=== PATIENT | female | born 2000 | race Two or more races ===

== ENCOUNTER 2019-11-24 13:02 | Emergency (ER) | payer MEDICAID ==
[2019-11-24] MEDS ORDERED: diphenhydrAMINE 50 mg/ml inj IV STA (13:18)
[2019-11-24] MEDS ORDERED: diphenhydrAMINE 50 mg/ml inj ONE (13:19)
--- NOTE | 2019-11-24 13:30 | NUR ---
Pt medicated with benadryl as ordered. Pt no longer having neck spasms. Pt given warm blanket.
[2019-11-24 14:13] VITALS: BP 106/59
[2019-11-24] MEDS ORDERED: DIPH25CA83 PO (19:47)
== END 2019-11-24 14:14 | disposition home or self-care (01) ==
LOC: ER 13:03
DX: O21.9 Vomiting of pregnancy, unspecified (principal); M54.2 Cervicalgia; Z88.8 Allergy status to other drugs, medicaments and biological substances; Z3A.14 14 weeks gestation of pregnancy
CPT/HCPCS: 96372; 99283; J1200

== ENCOUNTER 2019-12-07 18:00 | Emergency (ER) | payer MEDICAID ==
[~2019-12-07] VITALS: Ht 149.9 cm; Wt 59.1 kg
[~2019-12-07 18:00] MED LIST: DIPH25CA83 PO
[2019-12-07 18:01] VITALS: BP 137/89
== END 2019-12-07 19:22 | disposition home or self-care (01) ==
LOC: ER 18:00
DX: M25.511 Pain in right shoulder (principal); M54.6 Pain in thoracic spine; F12.90 Cannabis use, unspecified, uncomplicated; Z88.8 Allergy status to other drugs, medicaments and biological substances; Z79.899 Other long term (current) drug therapy
CPT/HCPCS: 99282

== ENCOUNTER 2023-06-22 16:12 | Outpatient (CLI) | payer MEDICAID | END 2023-06-22 23:59 | disposition home or self-care (01) | LOC: RAD 16:12 | PROVIDERS: ATTEND Obstetrics & Gynecology | DX: O09.91 Supervision of high risk pregnancy, unspecified, first trimester (principal); Z3A.14 14 weeks gestation of pregnancy | CPT/HCPCS: 76801 ==

== ENCOUNTER 2023-07-07 18:55 | Emergency (ER) | payer MEDICAID ==
[~2023-07-07] VITALS: Ht 149.9 cm; Wt 85.5 kg
[2023-07-07 19:10] VITALS: BP 117/84; PULSE 82; RESP 16; TEMP 98.2; O2SAT 98
[2023-07-07] MEDS ORDERED: AMOX-117 PO (19:25)
== END 2023-07-07 19:41 | disposition home or self-care (01) ==
LOC: ER 18:55
DX: O26.892 Other specified pregnancy related conditions, second trimester (principal); K04.7 Periapical abscess without sinus; Z3A.16 16 weeks gestation of pregnancy
CPT/HCPCS: 99283

== ENCOUNTER → 2023-08-25 | Outpatient (CLI) | payer MEDICAID | END | disposition home or self-care (01) | LOC: RAD 12:50 | PROVIDERS: ATTEND Obstetrics & Gynecology | DX: O09.92 Supervision of high risk pregnancy, unspecified, second trimester (principal); Z3A.23 23 weeks gestation of pregnancy | CPT/HCPCS: 76811 ==

== ENCOUNTER 2023-11-24 14:43 | Outpatient (CLI) | payer MEDICAID | END 2023-11-24 23:59 | disposition home or self-care (01) | LOC: RAD 14:43 | PROVIDERS: ATTEND Obstetrics & Gynecology | DX: O09.93 Supervision of high risk pregnancy, unspecified, third trimester (principal); Z3A.36 36 weeks gestation of pregnancy | CPT/HCPCS: 76815 ==

== ENCOUNTER 2024-12-21 12:53 | Emergency (ER) | payer MEDICAID ==
[~2024-12-21] VITALS: Ht 149.9 cm; Wt 90.3 kg
[2024-12-21 13:00] VITALS: BP 134/91; PULSE 99; RESP 18; TEMP 97.1; O2SAT 96
--- NOTE | 2024-12-21 13:49 | RADIOLOGY REPORT ---
Indication: HAND PAIN Technique: DI HAND, COMPLETE (3VW MIN)HAND 3VW Comparison: None FINDINGS/IMPRESSION: No radiographic evidence for acute fracture or dislocation. No significant soft tissue edema. No radiopaque foreign body.
--- NOTE | 2024-12-21 13:49 | RADIOLOGY REPORT ---
Indication: FOOT PAIN Technique: DI FOOT, COMPLETE (3VW MIN)FOOT CPLT Comparison: None FINDINGS/IMPRESSION: No radiographic evidence for acute fracture or dislocation. No significant soft tissue edema. No radiopaque foreign body.
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
== END 2024-12-21 15:49 | disposition home or self-care (01) ==
LOC: ER 12:53
DX: M79.641 Pain in right hand (principal); M79.672 Pain in left foot; Z88.8 Allergy status to other drugs, medicaments and biological substances; Y04.8XXA Assault by other bodily force, initial encounter; Y93.89 Activity, other specified; Y92.89 Other specified places as the place of occurrence of the external cause; Y99.8 Other external cause status
CPT/HCPCS: 29125; 73130; 73630; 99284